=== PATIENT | female | born 1995 | race Caucasian/White ===

== ENCOUNTER 2018-08-11 09:24 | Emergency (ER) | payer MEDICAID ==
[~2018-08-11] VITALS: Ht 162.6 cm; Wt 117.0 kg
[2018-08-11 09:28] VITALS: BP 131/71; PULSE 94; RESP 19; Ht 162.6 cm; Wt 117.0 kg
[2018-08-11] MEDS ORDERED: IBUP-1542 PO (09:40)
[2018-08-11] MEDS ORDERED: CYCL10TA7 PO (09:40)
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
[2018-08-11] MEDS ORDERED: IBUPROFEN 600 MG TAB PO ONE (10:00)
== END 2018-08-11 09:57 | disposition home or self-care (01) ==
LOC: FTE 09:24
DX: M54.5 Low back pain (principal)
CPT/HCPCS: Z7502; Z7610; 99283

== ENCOUNTER 2018-08-13 12:09 | Emergency (ER) | payer MEDICAID ==
[~2018-08-13] VITALS: Ht 162.6 cm; Wt 104.0 kg
[~2018-08-13 12:09] MED LIST: CYCL10TA7 PO; IBUP-1542 PO
[2018-08-13 12:18] VITALS: BP 165/92; PULSE 85; RESP 18; Ht 162.6 cm; Wt 104.0 kg
[2018-08-13] MEDS ORDERED: KETOROLAC 60 MG INJ IM STA (15:02)
[2018-08-13] MEDS ORDERED: DEXAMETHASONE 10 MG/ML 1 ML INJ IM ONE (15:30)
[2018-08-13] MEDS ORDERED: DIAZEPAM 5 MG TAB PO ONE (15:30)
[2018-08-13] MEDS ORDERED: NAPR-985 PO (15:35)
[2018-08-13] MEDS ORDERED: HYDR-4011 PO (15:35)
[2018-08-13] MEDS ORDERED: CYCL10TA7 PO (15:35)
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
== END 2018-08-13 15:38 | disposition home or self-care (01) ==
LOC: FTE 12:09
DX: M54.5 Low back pain (principal)
CPT/HCPCS: 72100; 81003; 81025; J1100; J1885; Z7610; 96372